=== PATIENT | male | born 1955 | race Caucasian/White ===

== ENCOUNTER 2019-11-23 15:29 | Emergency (ER) | payer OTHER, SELFPAY ==
--- NOTE | ~2019-11-23 | XR_ITS ---
EXAMINATION: XR chest 2V 11/23/2019 16:12 INDICATION: Chest pain and shortness of breath PROCEDURE: 2 view chest COMPARISON: No prior studies for comparison. FINDINGS: The lungs are clear. The cardiomediastinal silhouette is within normal limits. There are no pleural effusions. There is no pneumothorax suspected. IMPRESSION: 1: NO ACUTE CARDIOPULMONARY DISEASE. Reviewed, dictated and finalized at location A. KDOWN WORKER
[2019-11-23 15:42] VITALS: BP 142/82; PULSE 72; RESP 20; TEMP 36.6; O2SAT 100
--- NOTE | 2019-11-23 15:49 | ECG_ITS ---
Measurements Intervals Plato Rate: 73 P: 15 MT: 152 QRS: 49 QRSD: 136 T: -6 QT: 400 QTc: 443 Interpretive Statements SINUS RHYTHM VENTRICULAR PREMATURE COMPLEXES RIGHT BUNDLE BRANCH BLOCK BASELINE ARTIFACT- II, III, AVF ABNORMAL ECG Electronically Signed On 11-23-2019 17:51:03 FLY FRAME TENDER by Wisam Becerril D.O.
--- NOTE | 2019-11-23 15:49 | ED.GENADULT ---
HPI - General Adult General Chief complaint: Chest Pain Stated complaint: chest pain/sob Time Seen by Provider: 11/23/19 15:49 Source: patient and RN notes reviewed History of Present Illness HPI narrative: Patient is a 64-year-old male that presents the urgent care with complaints of shortness of breath and chest pain. Patient states is been on and off for the last few days. Patient walked up into his primary care office, Dr. Jordan, prior to arrival and was told to come to the urgent care for further evaluation of his chest pain. Called to verify that, and then story is fact true. Patient states he is also recently flown, on Saturday. Patient wants a chest x-ray . Patient does not feel that it is heart related. Patient denies any radiation of the pain. Denies any recent fevers, nausea, vomiting. Patient states he has surgery next week and originally came here for labs at [facility] and decided to check in due to the direction of his PCP office. No other acute complaints. No acute distress noted. Patient aware of plan of care. Related Data Home Medications Medication Instructions Recorded Confirmed metoprolol succinate 100 mg PO DAILY 11/23/19 11/23/19 penicillin G sodium 11/23/19 Allergies Allergy/AdvReac Type Severity Reaction Status Date / Time No Known Allergies Allergy Verified 11/23/19 15:50 Review of Systems Review of Systems: Narrative: CONSTITUTIONAL: Denies fever, chills, or sweats. EYES: Denies visual changes, redness, or discharge. ENT: Denies rhinorrhea, congestion, sore throat, or otalgia. CARDIOVASCULAR: Reports of intermittent chest pains RESPIRATORY: Reports of dyspnea GASTROINTESTINAL: Denies abdominal pain, nausea, vomiting, or diarrhea. GENITOURINARY: Denies dysuria or hematuria. SKIN: Denies rash or itching. MUSCULOSKELETAL: Denies back pain, joint pain, or myalgia. NEUROLOGIC: Denies headache, numbness, or weakness. PMFSH Social History Social History Smoking status: Never smoker Comments At the time of my signature, I reviewed and agree with the nursing past medical, surgical, social, and family history. There is no relevant family history pertinent to the patient complaint. Exam Narrative: Exam Narrative: GENERAL: This is a well-nourished, well-developed patient, in no apparent distress. HEAD: normocephalic, atraumatic. EYES: PERRL. Sclera clear/white. Vision is grossly intact. EARS: External ears normal NOSE: External nose normal with no obvious nasal discharge THROAT: Mucous membranes moist, posterior pharynx clear. NECK: Neck supple CARDIOVASCULAR: Regular rate and rhythm without murmurs, gallops, or rubs. RESPIRATORY: Clear to auscultation. Breath sounds equal bilaterally. No wheezes, rales, or rhonchi. SKIN: warm, intact with no suspicious lesions or rash, good texture and turgor. NEURO: awake, alert, and oriented to person, place and time. There were no obvious focal neurologic abnormalities. EXTREMITIES: No clubbing, cyanosis, or edema. Course Vital Signs Vital signs: Vital Signs Temperature 97.9 F 11/23/19 15:42 Pulse Rate 72 11/23/19 15:42 Respiratory Rate 11/23/19 15:42 Blood Pressure 142/82 H 11/23/19 15:42 Pulse Oximetry 100 11/23/19 15:42 Temperature 97.9 F 11/23/19 15:42 Pulse Rate 72 11/23/19 15:42 Respiratory Rate 11/23/19 15:42 Blood Pressure 142/82 H 11/23/19 15:42 Pulse Oximetry 100 11/23/19 15:42 Reviewed?patient is informed that they may have pre-hypertension or hypertension based on a blood pressure reading in the department. I recommend the patient call the primary care provider listed on their discharge instructions or a physician of their choice this week to arrange follow-up for further evaluation of possible pre-hypertension or hypertension. Medical Decision Making MDM Narrative Medical decision making narrative: Reviewed EKG results with the patient. He is aware that it is different from his EKG 1 griselda
--- NOTE | 2019-11-23 16:27 | PC.NURSE ---
Pt overtalking all staff--repeating self and not listening
== END 2019-11-23 16:25 | disposition left against medical advice (07) ==
PROVIDERS: Emergency Provider Nurse Practitioner Family; PCP Family Medicine
DX: R07.9 Chest pain, unspecified (principal); I45.10 Unspecified right bundle-branch block; I10 Essential (primary) hypertension
CPT/HCPCS: 71046; 93005; 99213; G0463

== ENCOUNTER 2019-12-10 09:58 | Outpatient (CLI) | payer OTHER, SELFPAY ==
--- NOTE | 2019-12-10 10:10 | EST_ITS ---
Patient Info Name: Shakila Castaneda Age: 64 years : 1955 Gender: Male Ht: 72 in Wt: 202 lbs BSA: 2.17 m2 Exam Date: 12/10/2019 10:57 AM Exam Location: [facility] Patient Status: Outpatient Admit Date: 12/10/2019 Staff Ordering Physician: Cathryn Jordan MD Tile Mechanic Helper: Rose Mary Portillo RCS Attending Provider: PATRICE WEEKS DO Referring Physician: Nikki PATIÑO; Exercise Technologist: Casandra Snyder RDCS Exercise Physician: Patrice Weeks DO Exam Type: CA stress echo Study Info Indications Z01.818 - Encounter for other preprocedural examination I45.19 - Other right bundle-branch block R94.31 - Abnormal electrocardiogram ECG EKG Treadmill exercise stress echocardiogram is performed. Summary 1. 1. Negative Steve exercise stress test for ischemic ST changes by ECG criteria. 2. 2. Good functional capacity, achieving 12 METs of workload. 3. 3. Appropriate HR response to exercise. 4. 4. Appropriate HR recovery at 1 minute post exercise. 5. 5. Negative stress echocardriogram for ischemia by wall motion analysis. 6. 6. Patient informed of the above results. Stress Echo Findings Left Ventricle Appropriate increase in LV endocardial thickening with systole. Appropriate augmentation of contractility with systole. No wall motion abnormality. Left Ventricle Normal LV systolic function, no wall motion abnormality. Protocol: Steve Stress ECG Details Stage: REST Duration (min): 1 min : 24 sec Speed (mph): 0.0 Grade (%): 0 HR (bpm): 68 SBP (mmHg): 139 DBP (mmHg): 93 METS: --- Stage: REST Duration (min): 13 min : 50 sec Speed (mph): 0.0 Grade (%): 0 HR (bpm): 67 SBP (mmHg): 139 DBP (mmHg): 93 METS: --- Stage: STAGE 1 Duration (min): 1 min : 0 sec Speed (mph): 1.7 Grade (%): 10 HR (bpm): 89 SBP (mmHg): 139 DBP (mmHg): 93 METS: --- Stage: STAGE 1 Duration (min): 2 min : 0 sec Speed (mph): 1.7 Grade (%): 10 HR (bpm): 93 SBP (mmHg): 139 DBP (mmHg): 93 METS: --- Stage: STAGE 1 Duration (min): 3 min : 0 sec Speed (mph): 1.7 Grade (%): 10 HR (bpm): 100 SBP (mmHg): 185 DBP (mmHg): 79 METS: --- Stage: STAGE 2 Duration (min): 1 min : 0 sec Speed (mph): 2.5 Grade (%): 12 HR (bpm): 103 SBP (mmHg): 185 DBP (mmHg): 79 METS: --- Stage: STAGE 2 Duration (min): 2 min : 0 sec Speed (mph): 2.5 Grade (%): 12 HR (bpm): 108 SBP (mmHg): 182 DBP (mmHg): 109 METS: --- Stage: STAGE 2 Duration (min): 3 min : 0 sec Speed (mph): 2.5 Grade (%): 12 HR (bpm): 117 SBP (mmHg): 182 DBP (mmHg): 109 METS: --- Stage: STAGE 3 Duration (min): 1 min : 0 sec Speed (mph): 3.4 Grade (%): 14 HR (bpm): 120 SBP (mmHg): 111 DBP (mmHg): 79 METS: --- Stage: STAGE 3 Duration (min): 2 min : 0 sec Speed (mph): 3.4 Grade (%): 14 HR (bpm): 126 SBP (mmHg): 111 DBP (mmHg): 79 METS: ---
== END 2019-12-10 09:59 | disposition home or self-care (01) ==
LOC: ANHCARD 10:00
PROVIDERS: PCP Family Medicine; Visit Provider Family Medicine
DX: I25.10 Atherosclerotic heart disease of native coronary artery without angina pectoris (principal)
CPT/HCPCS: 93351

== ENCOUNTER 2019-12-15 01:05 | Day surgery (SDC) | payer OTHER, SELFPAY ==
[2019-11-30 09:39] VITALS: BMI 27.3
[2019-12-15] VITALS (9 sets, daily range): BP systolic 93–138; BP diastolic 56–82; PULSE 59–73; RESP 10–20; TEMP 36.1–37; O2SAT 94–100
[2019-12-15] MEDS: LACTATED RINGERS 1,000 ML 30 ML IV CONT ×2 (10:40→12:00)
--- NOTE | 2019-12-15 10:41 | WPDANESEPPF ---
Anes - Initial Pre Proc Eval Procedure: Operation Date: 12/15/19 10:30 Proposed Procedures p Left Cubital Tunnel Release - Thony Zamorano MD Date/Time: 12/15/19 10:41 Surgeon: Thony Zamorano MD Pre Op Diagnosis: Left Cubital Tunnel Syndrome Patient Data Age: 64 Gender: M Height: 6 ft Weight: 91.63 kg Allergies Allergy/AdvReac Type Severity Reaction Status Date / Time No Known Allergies Allergy Verified 12/03/19 11:29 Home Medications Medication Instructions Recorded Confirmed Type metoprolol succinate 100 mg PO HS 11/23/19 11/30/19 History hydrocodone 5 mg-acetaminophen 325 1 tablet PO Q6H PRN #15 tablet 12/02/19 12/02/19 Rx mg tablet Patient hx anesthesia problems: none Family hx anesthesia problems: none PMFSH Past Medical History Medical History Hypertension Social History Social History Smoking status: Never smoker Anes - Eval Final PreProcedure Day of Procedure 12/15/19 10:41 Patient weight: overweight Heart: regular rate and rhythm Lungs: clear to auscultation Airway: Mallampati scale class II Neurological: alert and oriented Last oral intake: >/= 8 hours ASA classification: II Emergent: no Anesthetic plan: proceed Anesthesia type and monitoring: general LMA and standard monitoring Informed Consent: The patient's anesthetic plan and its attendant risks and benefits were discussed with the patient/family/POA. Questions were solicited and answers provided to the satisfaction of the patient/family/POA.
--- NOTE | 2019-12-15 10:51 | WPDHPUPDATE1 ---
History and Physical Update Update Date/Time: 12/15/19 10:51 History and Physical has been reviewed, including an updated exam of the patient. There are NO changes in the patient's condition. Risks, benefits, and alternatives have been discussed and questions answered. Patient agrees to proceed with procedure.
[2019-12-15] MEDS: ceFAZolin 2 GM/D5W 50 ML 2 GM/50 ML BAG IVPB (10:58)
[2019-12-15] MEDS: LIDO 1%/EPINEPHRINE 1:100,000 20 ML VIAL 10 ML INFILTRATE (11:29)
--- NOTE | 2019-12-15 11:40 | SUR.OPER ---
EBL:5CC
--- NOTE | 2019-12-15 12:16 | PM.PROC ---
Procedure Note - Detailed Date of procedure: 12/15/19 Pre-op diagnosis: Left Cubital Tunnel Syndrome Post-op diagnosis: same Procedure performed: Left open cubital tunnel release Description of procedure: Patient was marked in the preoperative holding area with his verification. He was taken to the operating room placed supine on the operating room table. Anesthesia provided by anesthesiology and prepped and draped in a standard sterile fashion. Surgical time-out was taken. 1% lidocaine and 0.25% Marcaine with epinephrine was used anesthetize locally. Esmarch was used to exsanguinate the arm and tourniquet inflated to 250 mmHg. Fifteen blade used to make an incision over the ulnar nerve just proximal to the elbow. Dissection was continued down until the nerve was identified the followed this proximally and distally with complete release with no evidence of neurovascular tendon injury. I did protect any crossing nerves. Tourniquet was released and a verified strict hemostasis. I made sure there was no subluxation of the nerve. I closed with 3-0 Monocryl followed by running subcuticular 4-0 Monocryl, tissue glue. Fluffs and an Herman wrap lightly applied were placed. Awoke and taken the PACU without difficulty. All instrument sponge counts were correct at the end of the case. Anesthesia: GLMA Surgeon: Thony Zamorano MD Estimated blood loss (mL): 5 Drains: No Packing: No Pathology: none sent Complications: No immediate complications Condition: stable Disposition: PACU Findings: No clear impingement points. Preoperatively does have muscle wasting and numbness at all times. He understands this may not improve given the severity of symptoms.
== END 2019-12-15 14:08 | disposition home or self-care (01) ==
PROVIDERS: PCP Family Medicine; Visit Provider Surgery Plastic and Reconstructive Surgery
PROC: (CPT 64718; principal; 2019-12-15 10:30)
DX: G56.22 Lesion of ulnar nerve, left upper limb (principal); I10 Essential (primary) hypertension
CPT/HCPCS: 64718; J0690; J2250; J2405; J2704; J3010; J7120

== ENCOUNTER 2024-10-23 13:52 | Outpatient (CLI) | payer MEDICARE, SELFPAY ==
[2024-10-23 18:13] LABS: Alanine Aminotransferase 49 U/L (6-50); Albumin Level 4.5 g/dL (3.5-5.1); Alkaline Phosphatase 82 U/L (38-126); Anion Gap 1 mmol/L (4-12); Aspartate Amino Transferase 57 U/L (17-59); Bilirubin,Total 0.8 mg/dL (0.2-1.3); Blood Urea Nitrogen 13 mg/dL (9-20); Calcium 9.1 mg/dL (8.4-10.2); Carbon Dioxide 32 mmol/L (22-30); Chloride 104 mmol/L (98-107); Cholesterol 159 mg/dL (0-200); Estimated Glomerular Filt Rate > 60; Glucose 107 mg/dL (65-110); HDL Direct 30 mg/dL; Potassium 4.3 mmol/L (3.4-5.0); Sodium 137 mmol/L (137-145); Triglycerides 173 mg/dL (<150)
[2024-10-23 18:24] LABS: LDL Cholesterol Direct 89 mg/dL
[2024-10-23 18:42] LABS: Prostate Specific Antigen 4.3 ng/mL (< OR = 4.0)
== END 2024-10-23 13:53 | disposition home or self-care (01) ==
LOC: ANHGOSHLAB 13:53
PROVIDERS: PCP Family Medicine; Visit Provider Family Medicine
DX: R07.89 Other chest pain (principal); Z13.220 Encounter for screening for lipoid disorders; Z13.228 Encounter for screening for other metabolic disorders; Z12.5 Encounter for screening for malignant neoplasm of prostate
CPT/HCPCS: 36415; 80053; 80061; 84153; G0103

== ENCOUNTER 2025-04-26 15:03 | Outpatient (CLI) | payer MEDICARE, SELFPAY ==
--- NOTE | ~2025-04-26 | XR_ITS ---
AP view of the pelvis and AP and lateral views of the left hip Clinical history: Pain Findings: No acute fracture or dislocation is seen. Osseous alignment is anatomic. Bilateral hip and SI joint spaces are preserved. Soft tissues are unremarkable. Impression: No significant abnormality is seen. Reviewed, dictated and finalized at location . Impression: No significant abnormality is seen.
--- OUTSIDE RECORDS SUMMARY | 2025-04-26 15:10 | XMS_ITS | Clinical Summary ---
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
--- OUTSIDE RECORDS SUMMARY | 2025-04-26 15:10 | XMS_ITS | Referral Summary ---
Author Organization 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
[2025-04-26 15:36] LABS: Basophils Percent Auto 0.4 % (0.2-1.2); Eosinophils Absolute Auto 0.1 K/mm3 (0-0.3); Eosinophils Percent Auto 0.7 % (0-4.4); Hematocrit 47.2 % (42.0-52.0); Hemoglobin 16.6 g/dL (14.0-18.0); Immature Granulocyte Absolute 0.02 K/mm3 (0.00-0.031); Immature Granulocyte Percent A 0.3 % (0-0.5); Lymphocytes Absolute Auto 1.66 K/mm3 (0.9-3.2); Lymphocytes Percent Auto 22.9 % (18.3-44.2); Mean Corpuscular HGB Conc 35.2 g/dl (32-36); Mean Corpuscular Hemoglobin 30.8 pg (26-34); Mean Corpuscular Volume 87.6 fl (80-100); Mean Platelet Volume 9.8 fl (7.4-10.4); Monocytes Absolute Auto 0.6 K/mm3 (0.1-0.6); Monocytes Percent Auto 8.3 % (2.6-8.5); Neutrophils Absolute Auto 4.9 K/mm3 (1.3-6.7); Neutrophils Percent Auto 67.4 % (45.5-73.1); Platelet Count Result 300 k/mm3 (150-375); Red Blood Count 5.39 M/mm3 (4.6-6.20); Red Cell Distribution Width 12.3 % (11.5-14.5); White Blood Count 7.3 K/mm3 (4.5-10.0)
[2025-04-26 15:53] LABS: Alanine Aminotransferase 23 U/L (6-50); Alkaline Phosphatase 77 U/L (38-126); Anion Gap 12 mmol/L (4-12); Aspartate Amino Transferase 26 U/L (17-59); Blood Urea Nitrogen 28 mg/dL (9-20); Calcium 9.6 mg/dL (8.4-10.2); Carbon Dioxide 25 mmol/L (22-30); Chloride 104 mmol/L (98-107); Estimated Glomerular Filt Rate > 60; Glucose 122 mg/dL (65-110); Potassium 4.3 mmol/L (3.4-5.0); Sodium 141 mmol/L (137-145); Total Protein 8.4 g/dL (6.3-8.2)
== END 2025-04-26 15:04 | disposition home or self-care (01) ==
LOC: ANHLAB 15:06
PROVIDERS: PCP Family Medicine; Visit Provider Student in an Organized Health Care Education/Training Program
DX: M25.552 Pain in left hip (principal); I10 Essential (primary) hypertension
CPT/HCPCS: 36415; 73502; 80053; 85025